=== PATIENT | male | born 1955 | race Caucasian/White ===

== ENCOUNTER 2021-07-12 08:38 | Day surgery (SDC) | payer MEDICAID ==
[~2021-07-12] VITALS: Ht 182.9 cm; Wt 136.1 kg
[2021-07-12] MEDS ORDERED: LIDOCAINE 2% 100 MG/5 ML UJET TP ONE (11:27)
[2021-07-12] MEDS ORDERED: fentaNYL citrate 0.05 MG/ML VIAL ONE (11:27)
[2021-07-12] MEDS ORDERED: fentaNYL citrate 0.05 MG/ML VIAL IVP ONE (13:50)
== END 2021-07-12 12:31 | disposition home or self-care (01) ==
LOC: MLB 08:38 → MMU 09:17 → MLB 12:31
PROVIDERS: ATTEND Internal Medicine Gastroenterology
DX: Z12.11 Encounter for screening for malignant neoplasm of colon (principal); D12.5 Benign neoplasm of sigmoid colon; D12.8 Benign neoplasm of rectum; Z20.822 Contact with and (suspected) exposure to COVID-19; Z79.899 Other long term (current) drug therapy
CPT/HCPCS: 45385; 87426; J3010